=== PATIENT | male | born 1940 | race Caucasian/White ===

== ENCOUNTER → 2018-11-16 | Emergency (ER) | payer MEDICARE, MEDICAID ==
[~2018-11-16] MED LIST: Iopamidol 370 76% 100 ML VIAL ONE; Sodium Chloride 0.9% 1,000 ML IV SCH; Sodium Chloride 0.9% 1,000 ML ONE
--- NOTE | 2018-11-16 22:46 | RAD ---
EXAM: Portable chest PROVIDED CLINICAL HISTORY: Fever COMPARISON: None FINDINGS: Cardiac and mediastinal silhouette is within normal limits. No focal consolidation, pleural fluid or pneumothorax evident. Median sternotomy changes are seen. Vascular calcification is noted. IMPRESSION: No evidence for an acute cardiopulmonary process.
[2018-11-16 22:49] LABS: Band 40 % (5-11); Hemoglobin 15.4 g/dL (14.0-18.0); Lymphocytes 7 % (21-51); MDiff Complete? YES; Mean Corpuscular Hemoglobin 27.9 pg (27.0-31.0); Metamyelocyte 1 % (0-0); Monocytes 4 % (0-10); Neutrophil 48 % (42-75); Platelet Count 190 thou/uL (130-400); Platelet Morphology Comment Appears Adequate; RBC Distribution Width 14.3 % (11.5-14.5); RBC Morphology Normal; Red Blood Cell (RBC) Count 5.53 mill/uL (4.70-6.10); White Blood Cell (WBC) Count 22.7 thou/uL (4.8-10.8)
[2018-11-16 22:55] LABS: ALT (SGPT) 75 U/L (8-55); AST (SGOT) 133 U/L (5-34); Alkaline Phosphatase 65 U/L (40-150); Anion Gap 16 mmol/L (10-20); BUN (Urea Nitrogen) 48 mg/dL (8.4-25.7); Bilirubin, Total 0.7 mg/dL (0.2-1.2); Calc. Creatinine Clearance 0 mL/min (70-130); Carbon Dioxide 22 mmol/L (23-31); Chloride 106 mmol/L (98-107); Estimated GFR-MDRD 54; Globulin 3.6 g/dL (2.4-3.5); Glucose 141 mg/dL (83-110); Potassium 4.7 mmol/L (3.5-5.1); Protein, Total 6.6 g/dL (5.8-8.1); Sodium 139 mmol/L (136-145)
[2018-11-16 23:31] LABS: Bilirubin Small (Negative); Blood, Urine Large (Negative); Clarity Slightly Cloudy (Clear); Glucose, Urine (Dipstick) 100 mg/dL (Negative); Leukocyte Negative (Negative); Nitrite Negative (Negative); Protein, Urine (Dipstick) 30 mg/dL (Neg-Trace)
[2018-11-16 23:38] LABS: Bacteria/HPF 1+ HPF (None Seen); RBC/HPF 0-3 HPF (0-3); Squamous Epithelial 0-3 HPF (0-3); WBC/HPF 0-3 HPF (0-3)
--- NOTE | 2018-11-17 07:36 | CT ---
PRELIMINARY REPORT/[facility]/EMERGENCY AFTER HOURS PROCEDURE: EXAM: CT Abdomen and Pelvis With Contrast EXAM DATE/TIME: 11/17/2018 12:42 AM CLINICAL HISTORY: 78 years old, male; Abnormal findings; Abnormal lab test; Elevated wbc TECHNIQUE: Imaging protocol: Axial computed tomography images of the abdomen and pelvis with intravenous contrast. Coronal and sagittal reformatted images were created and reviewed. Radiation optimization: All CT scans at this facility use at least one of these dose optimization techniques: automated exposure control; mA and/or kV adjustment per patient size (includes targeted exams where dose is matched to clinical indication); or iterative reconstruction. Contrast material: ISOVUE 370; Contrast volume: 70 ml; Contrast route: IV; COMPARISON: No relevant prior studies available. FINDINGS: Lungs: Bilateral dependent atelectasis. Liver: Normal. No mass. Gallbladder and bile ducts: There is thickening of the left superior internus muscle with a welldefin ed 3.6 cm area of hypoattenuation within. There is a similar low attenuation area in the anterolateral aspect of the right gluteus medius muscle. There is incomplete it is less fat stranding adjacent to the visualized portion of the proximal anterior compartment muscles of both thighs. Findings may represent myositis/pyomyositis or rhabdomyolysis. Pancreas: Normal. No ductal dilation. Spleen: Normal. No splenomegaly. Adrenals: Normal. No mass. Kidneys and ureters: Bilateral renal cysts. Stomach and bowel: No bowel wall thickening or intestinal obstruction. Appendix: Normal appendix. Intraperitoneal space: Normal. No free air. No significant fluid collection. Vasculature: Normal. No abdominal aortic aneurysm. Lymph nodes: Normal. No enlarged lymph nodes. Bladder: Unremarkable as visualized. Reproductive: Prostatomegaly. Prostate is heterogeneous. Prostate malignancy not excluded on this study. Bones/joints: No acute fracture. No dislocation. Soft tissues: See Gallbladder And Bile Ducts Finding. IMPRESSION: There is thickening of the left superior internus muscle with a well-defined 3.6 cm area of hypoattenuation within. There is a similar low attenuation area in the anterolateral aspect of the ri ght gluteus medius muscle. There is incomplete it is less fat stranding adjacent to the visualized portio n of the proximal anterior compartment muscles of both thighs. Findings may represent myositis/pyomyositis or rhabdomyolysis. Thank you for allowing us to participate in the care of your patient. Dictated and Authenticated by: Sp Cervantes MD 11/17/2018 2:18 AM Central Time ([place] & [place]) FINAL REPORT CT ABDOMEN AND PELVIS WITH IV CONTRAST PERFORMED ON AN EMERGENCY BASIS: Date: 11/17/18 Time: 0044 hours HISTORY: Abdominal pain. Fever. Leukocytosis. FINDINGS: I agree with the preliminary report by Dr. Cervantes from [facility]. No acute interna l abnormalities are apparent. Mild atelectasis at the lung bases. Irregularity at the posterior aspect of the bladder base favored to be related to the enlarged prostate gland. Ill-defined areas of density alteration of the musculature about the pelvis. Possibly related to myositis. Drainable fluid collection not reliably demonstrated. Code QA. Transcribed Date/Time: 11/17/2018 8:22 AM
== END ==
LOC: NAV ERS 21:57
DX: N39.0 Urinary tract infection, site not specified (principal); G30.1 Alzheimer's disease with late onset; F03.91 Unspecified dementia, unspecified severity, with behavioral disturbance; N40.1 Benign prostatic hyperplasia with lower urinary tract symptoms; E03.9 Hypothyroidism, unspecified; F32.9 Major depressive disorder, single episode, unspecified; Z79.899 Other long term (current) drug therapy
CPT/HCPCS: 36415; 71045; 80053; 81003; 81015; 82550; 83605; 85025; 87040; 87086; 87804; J7050; Q9967

== ENCOUNTER 2018-11-17 03:02 | Inpatient (IN) | payer MEDICARE, MEDICAID ==
[2018-11-17 03:49] VITALS: BMI 25.7
[2018-11-17 05:55] LABS: Anion Gap 17 mmol/L (10-20); BUN (Urea Nitrogen) 42 mg/dL (8.4-25.7); Calc. Creatinine Clearance 61 mL/min (70-130); Calcium 8.7 mg/dL (7.8-10.44); Carbon Dioxide 20 mmol/L (23-31); Chloride 108 mmol/L (98-107); Estimated GFR-MDRD 76; Glucose 110 mg/dL (83-110); Potassium 4.3 mmol/L (3.5-5.1); Sodium 141 mmol/L (136-145)
[2018-11-17] MEDS: Sodium Chloride 0.9% 1,000 ML IV SCH ×2 (06:04→15:55)
[2018-11-17] MEDS: cefTRIAXone\\ROCEPHIN 1 GM in Sodium Chloride 0.9% 100 ML IVPB SCH (06:05)
[2018-11-17] MEDS: Levothyroxine Sodium 75 MCG TAB PO SCH (06:05)
[2018-11-17 06:08] LABS: Vancomycin, Random 12.9 ug/mL (See Comment)
[2018-11-17 06:11] LABS: Band 21 % (5-11); Hemoglobin 15.1 g/dL (14.0-18.0); Lymphocytes 4 % (21-51); MDiff Complete? YES; Mean Corpuscular HGB CONC 30.6 g/dL (32.0-36.0); Mean Corpuscular Hemoglobin 28.3 pg (27.0-31.0); Mean Corpuscular Volume 92.3 fL (78.0-98.0); Mean Platelet Volume 8.4 fL (7.4-10.4); Metamyelocyte 2 % (0-0); Monocytes 6 % (0-10); Neutrophil 67 % (42-75); Platelet Count 164 thou/uL (130-400); Platelet Morphology Comment Appears Adequate; RBC Distribution Width 14.6 % (11.5-14.5); RBC Morphology Normal; Red Blood Cell (RBC) Count 5.34 mill/uL (4.70-6.10); White Blood Cell (WBC) Count 18.9 thou/uL (4.8-10.8)
[2018-11-17] MEDS ORDERED: Vancomycin HCl 1 GM in Sodium Chloride 0.9% 250 ML 250 ML IVPB SCH (09:00)
[2018-11-17] MEDS: Ziprasidone 20 MG CAP PO SCH ×2 (09:03→16:52)
[2018-11-17] MEDS: busPIRone HCl 5 MG TAB PO SCH ×3 (09:04→21:44)
[2018-11-17] MEDS: Tamsulosin HCl 0.4 MG CAP PO SCH (09:04)
[2018-11-17] MEDS: Divalproex Sodium 125 mg Sprinkle Capsule PO SCH ×2 (09:18→21:45)
[2018-11-17] MEDS: Acetaminophen 325 MG TAB PO PRN (16:52)
[2018-11-17] MEDS ORDERED: Prevnar 13-Val Conj/PF 0.5 ML SYRINGE IM ONE (21:00)
[2018-11-17] MEDS: Atorvastatin Calcium 10 MG TAB PO SCH (21:44)
[2018-11-18] MEDS: Acetaminophen 325 MG TAB PO PRN ×2 (01:43→05:28)
[2018-11-18] MEDS: cefTRIAXone\\ROCEPHIN 1 GM in Sodium Chloride 0.9% 100 ML IVPB SCH (05:27)
[2018-11-18] MEDS: Sodium Chloride 0.9% 1,000 ML IV SCH ×2 (05:28→19:54)
[2018-11-18] MEDS: Levothyroxine Sodium 75 MCG TAB PO SCH ×2 (05:28→05:38)
[2018-11-18 06:22] LABS: ALT (SGPT) 55 U/L (8-55); AST (SGOT) 69 U/L (5-34); Albumin 2.4 g/dL (3.4-4.8); Alkaline Phosphatase 50 U/L (40-150); Anion Gap 12 mmol/L (10-20); BUN (Urea Nitrogen) 47 mg/dL (8.4-25.7); Bilirubin, Total 0.5 mg/dL (0.2-1.2); Calc. Creatinine Clearance 71 mL/min (70-130); Calcium 8.3 mg/dL (7.8-10.44); Carbon Dioxide 24 mmol/L (23-31); Chloride 112 mmol/L (98-107); Estimated GFR-MDRD Greater than 90; Globulin 2.9 g/dL (2.4-3.5); Glucose 107 mg/dL (83-110); Potassium 4.1 mmol/L (3.5-5.1); Protein, Total 5.3 g/dL (5.8-8.1); Sodium 144 mmol/L (136-145)
[2018-11-18 06:36] LABS: Hemoglobin 12.6 g/dL (14.0-18.0); Mean Corpuscular HGB CONC 30.9 g/dL (32.0-36.0); Mean Corpuscular Hemoglobin 28.2 pg (27.0-31.0); Mean Corpuscular Volume 91.1 fL (78.0-98.0); Mean Platelet Volume 8.3 fL (7.4-10.4); Platelet Count 142 thou/uL (130-400); RBC Distribution Width 14.6 % (11.5-14.5); Red Blood Cell (RBC) Count 4.48 mill/uL (4.70-6.10); White Blood Cell (WBC) Count 16.3 thou/uL (4.8-10.8)
[2018-11-18 06:37] LABS: Band 13 % (5-11); Lymphocytes 10 % (21-51); MDiff Complete? YES; Metamyelocyte 1 % (0-0); Monocytes 4 % (0-10); Neutrophil 72 % (42-75); Platelet Morphology Comment Appears Adequate
[2018-11-18] MEDS: busPIRone HCl 5 MG TAB PO SCH ×3 (08:38→20:10)
[2018-11-18] MEDS: Tamsulosin HCl 0.4 MG CAP PO SCH (08:38)
[2018-11-18] MEDS: Ziprasidone 20 MG CAP PO SCH ×2 (08:38→17:26)
[2018-11-18] MEDS: Divalproex Sodium 125 mg Sprinkle Capsule PO SCH ×2 (08:39→20:10)
--- NOTE | 2018-11-18 10:06 | HP ---
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 He also has a history of benign prostatic hypertrophy with lower tract symptoms and hypothyroidism. However, he presented to the [facility] Emergency Room with a new onset of fever to 102, decreased activity, but inability to obtain other history. The other history is obtained from the old chart that has been described above. ALLERGIES: HE HAS NO KNOWN ALLERGIES. MEDICATIONS: Included, 1. Levothyroxine 75 mcg daily. 2. BuSpar 5 mg three times daily. 3. Simvastatin 20 daily. 4. Depakote Sprinkles 375 mg twice daily. 5. Namenda 10 twice daily. 6. Ziprasidone 20 mg twice daily. 7. He also is on tamsulosin 0.4 mg nightly. REVIEW OF SYSTEMS: Unobtainable. He was seen in the emergency room and he was found to have significant leukocytosis. Temperature 102, O2 sats 95% on room air. LABORATORY DATA: Showed a white count of 22,700, hemoglobin of 15.4, hematocrit of 49.8, 21% bands, and 20% lymphs. Sodium was 139, potassium 4.7, chloride 106, bicarb 22, BUN 48, and creatinine 1.29. Lactic acid 1.9. AST 133, ALT 75, CK 7851. BNP 132. Urinalysis revealing positive dipstick for blood with only 0 to 3 red cells on microscopic consistent with myoglobinuria. DIAGNOSTIC STUDIES: Chest x-ray showed no acute infiltrates. CT scan of the abdomen and pelvis however reveals thickening of the left superior internus muscle with 3.6 cm area hypodensity, similar low attenuation area in the right gluteus medius muscle consistent with myositis, pyomyositis, or rhabdomyolysis. ASSESSMENT: with subsequent altered mental status consistent with rhabdomyolysis PLAN: 1. IV normal saline Rocephin 1 gm IV daily. 2. Base met profile. CBC in the a.m. 3. The patient is not to be resuscitated. 4. Continue Curtis Johansen . Job ID: [id number]
[2018-11-18] MEDS: Atorvastatin Calcium 10 MG TAB PO SCH (20:10)
[2018-11-19 05:41] LABS: #Basophils 0.1 thou/uL (0.0-0.2); #Eosinphils 0.3 thou/uL (0.0-0.7); #Lymphocytes 1.5 thou/uL (1.20-3.40); #Monocytes 0.8 thou/uL (0.11-0.59); #Neutrophils 9.2 thou/uL (1.40-6.50); %Basophils 1.2 % (0.0-1.0); %Eosinophils 2.3 % (0.0-10.0); %Lymphocytes 12.4 % (21.0-51.0); %Monocytes 6.9 % (0.0-10.0); %Neutrophils 77.2 % (42.0-75.0); Hemoglobin 11.2 g/dL (14.0-18.0); Mean Corpuscular HGB CONC 31.1 g/dL (32.0-36.0); Mean Corpuscular Hemoglobin 28.4 pg (27.0-31.0); Mean Corpuscular Volume 91.1 fL (78.0-98.0); Mean Platelet Volume 7.4 fL (7.4-10.4); Platelet Count 133 thou/uL (130-400); RBC Distribution Width 14.4 % (11.5-14.5); Red Blood Cell (RBC) Count 3.96 mill/uL (4.70-6.10); White Blood Cell (WBC) Count 11.9 thou/uL (4.8-10.8)
[2018-11-19] MEDS: Levothyroxine Sodium 75 MCG TAB PO SCH (05:45)
[2018-11-19] MEDS: cefTRIAXone\\ROCEPHIN 1 GM in Sodium Chloride 0.9% 100 ML IVPB SCH (05:45)
[2018-11-19 05:52] LABS: Anion Gap 12 mmol/L (10-20); BUN (Urea Nitrogen) 44 mg/dL (8.4-25.7); Calc. Creatinine Clearance 80 mL/min (70-130); Calcium 7.9 mg/dL (7.8-10.44); Carbon Dioxide 23 mmol/L (23-31); Chloride 113 mmol/L (98-107); Estimated GFR-MDRD Greater than 90; Glucose 105 mg/dL (83-110); Potassium 3.8 mmol/L (3.5-5.1); Sodium 144 mmol/L (136-145)
[2018-11-19] MEDS: Divalproex Sodium 125 mg Sprinkle Capsule PO SCH ×2 (08:33→21:02)
[2018-11-19] MEDS: Tamsulosin HCl 0.4 MG CAP PO SCH (08:33)
[2018-11-19] MEDS: Ziprasidone 20 MG CAP PO SCH ×2 (08:33→17:59)
[2018-11-19] MEDS: busPIRone HCl 5 MG TAB PO SCH ×3 (08:33→21:01)
[2018-11-19] MEDS: Sodium Chloride 0.9% 1,000 ML IV SCH ×2 (10:20→23:16)
--- NOTE | 2018-11-19 18:16 | PRG ---
DATE OF SERVICE: 11/19/2018 SUBJECTIVE: The patient is more awake, alert and responsive today and appears to be close to his baseline mental status. Denying any complaints. The patient is eating 50% to 75% of meals at this time. OBJECTIVE: LUNGS: Clear. CARDIAC: Regular rhythm. ABDOMEN: Soft and nontender. LABORATORY DATA: Shows sodium 144, potassium 4.1, chloride 112, bicarb 24, BUN 47, creatinine 0.81, albumin 2.4. [place] 132[place] [address], hematocrit 40, hemoglobin 12. ASSESSMENT: Resolving pyomyositis with decreasing pain and fever, and improving leukocytosis, and return to baseline mental status and dietary status as the patient is eating well. PLAN: 1. . His urine culture and blood culture are negative at 48 hours. 2. Continue IV fluids of normal saline at 75 mL an hour. change antibiotics to Rocephin 1 g q.24. Plan, repeat lab tomorrow as well as CRP, BMP. Continue IV fluids one more day and repeat CPK and possibly obtain PICC line as the patient may need at least two weeks of IV antibiotics. Job ID: [id number]
[2018-11-19] MEDS: Atorvastatin Calcium 10 MG TAB PO SCH (21:03)
[2018-11-20] MEDS: cefTRIAXone\\ROCEPHIN 1 GM in Sodium Chloride 0.9% 100 ML IVPB SCH (05:40)
[2018-11-20] MEDS: Levothyroxine Sodium 75 MCG TAB PO SCH (05:41)
[2018-11-20 06:42] VITALS: BP 119/58; TEMP 98.4
--- NOTE | 2018-11-20 07:30 | PRG ---
DATE OF SERVICE: 11/19/2018 SUBJECTIVE: The patient is awake and alert, at baseline mental status, which is minimally verbally responsive, but in no distress and eating well. OBJECTIVE: Shows CRP is 14.44. Sodium is 144, potassium 3.8, chloride 113, bicarb 23, BUN is 44, creatinine 0.72. White count is down to 11,900, hematocrit 36, hemoglobin 11. Blood pressure is 134/76, temperature is 99.1, pulse 84, respirations 18, O2 sats 94% on room air. Urine culture at 48 hours reported out as no growth. Blood culture preliminary report at 48 hours is no growth. Lungs are clear. Cardiac examination showed regular rhythm. Abdomen is soft and nontender as his back and truncal areas. ASSESSMENT: 1. Resolving sepsis with normalized leukocytosis. No fever; tachycardia, stable blood pressure, and return to stable mental status, on IV Rocephin. 2. Underlying diagnosis of probable pyomyositis seen on CT scan of the abdomen and pelvis, most likely the cause of the sepsis syndrome. We will consult with infectious diseases of further evaluation required. 3. Rhabdomyolysis secondary to above mentioned pyomyositis, improving with decrease in CK and normal renal function. 4. Stable underlying altered mental status and dementia, back to baseline. 5. Hypothyroidism, stable. 6. Seizure disorder, controlled on prehospitalization meds. 7. Behavioral disturbances secondary to above-mentioned dementia, stable on medications. PLAN: 1. Continue IV Rocephin. 2. Discussed with Infectious Diseases further evaluation and also length of therapy required. 3. Continue IV fluids until tomorrow and then discontinue heparin lock. 4. Continue pre-hospital seizure medications and dementia medications. Job ID: [id number]
--- NOTE | 2018-11-20 07:42 | DIS ---
DATE OF ADMISSION: 11/17/2018 DATE OF DISCHARGE: 11/20/2018 FINAL DIAGNOSES: 1. Sepsis syndrome secondary to pyomyositis of the abdominal wall, improving on IV antibiotics. 2. Dementia, stable on prehospitalization medications with controlled behavioral disturbances. 3. Seizure disorder, controlled on prehospitalization meds. 4. Benign prostatic hypertrophy, lower tract obstructive symptoms stable. 5. Hypothyroidism, stable. HOSPITAL COURSE: The patient is a 78-year-old white male with dementia and seizure disorder, living at long term, who presented with acute onset of fever and a decrease in his mental status to unresponsiveness. He was found in the emergency room to have a white count of 22,700, BUN of 48, a creatinine of 1.29, a lactic acid of 1.9. Urinalysis was positive for blood, but there was no microscopic pyuria or hematuria. CK was found to be elevated at 7851. Chest x-ray was clear, but CT of the abdomen showed areas of thickening and gas pockets in the right gluteus medius muscle consistent with pyomyositis or rhabdomyolysis. Because of the sepsis syndrome, it was felt this was infectious. He was started on IV fluids and broad-spectrum IV antibiotic. Blood and urine cultures were done. They both returned negative but the patient initially was unresponsive, remained that way for 24 to 36 hours, but then began to return to baseline mental status, which was awake and alert, minimally responsive verbally but eating. His vital signs improved with no further fever. Blood pressure remained stable to 136/62, pulse 85, respirations 18, O2 sats 94% on room air. His laboratories improved greatly with his white count decreasing to 18,000 and 16,000 and 11,000 over the acute care admission. His CK decreased from 7800 on admission to 6700 the next day to 569 on transfer to the skilled unit. However, his C-reactive protein was still significantly elevated at 14.44 on transfer to the skilled unit. It was felt he had persistent inflammation of the gluteus medius muscle with myositis. He was therefore elected to continue on IV Rocephin for least 10 to 14 days and we will consult with Infectious Disease on the length of therapy and followup. He will be transferred to the [facility], will be continued on IV Rocephin and on his prehospitalization medications of Depakote 375 mg twice daily, levothyroxine 75 mcg daily, memantine 10 mg twice daily, tamsulosin 0.4 mg daily, ziprasidone 20 mg twice daily. His prognosis is improving, still guarded. He is not to be resuscitated. Job ID: [id number]
== END 2018-11-20 07:04 | disposition swing bed (61) | DRG 872 ==
LOC: NAV ACUTE 03:02
PROVIDERS: ADMIT Internal Medicine; ATTEND Internal Medicine
DX: A41.9 Sepsis, unspecified organism (principal); F03.91 Unspecified dementia, unspecified severity, with behavioral disturbance; R44.3 Hallucinations, unspecified; M62.82 Rhabdomyolysis; M60.08 Infective myositis, other site; G40.909 Epilepsy, unspecified, not intractable, without status epilepticus; N40.1 Benign prostatic hyperplasia with lower urinary tract symptoms; E03.9 Hypothyroidism, unspecified; Z79.899 Other long term (current) drug therapy
CPT/HCPCS: 36415; 51701; 71045; 74177; 80048; 80053; 80202; 81003; 81015; 82550; 83605; 83880; 85025; 86140; 87040; 87086; 87804; 96361; 96365; 96367; J0696; J3490; J7050; Q9967

== ENCOUNTER 2018-11-20 07:08 | Inpatient (IN) | payer MEDICARE, MEDICAID ==
[2018-11-20] MEDS ORDERED: Ondansetron PF 4 MG/2 ML Vial IVP PRN (07:18)
[2018-11-20] MEDS ORDERED: Loperamide HCl 2 MG CAP PO PRN (07:18)
[2018-11-20] MEDS: Ziprasidone 20 MG CAP PO SCH ×2 (08:40→17:31)
[2018-11-20] MEDS: Divalproex Sodium 125 mg Sprinkle Capsule PO SCH ×2 (08:41→21:05)
[2018-11-20] MEDS: Tamsulosin HCl 0.4 MG CAP PO SCH (08:41)
[2018-11-20] MEDS: busPIRone HCl 5 MG TAB PO SCH ×3 (08:42→21:02)
[2018-11-20] MEDS: Famotidine 20 MG TAB PO SCH ×2 (08:42→21:02)
[2018-11-20] MEDS ORDERED: LEVOTHYROXINE SODIUM 75 MCG PO SCH (09:00)
[2018-11-20 10:45] VITALS: BMI 25.7
[2018-11-20] MEDS ORDERED: Atorvastatin Calcium 10 MG TAB PO SCH (21:00)
[2018-11-20] MEDS ORDERED: SIMVASTATIN 20 MG PO SCH (21:00)
[2018-11-21] MEDS: Sodium Chloride 0.9% 1,000 ML IV SCH ×2 (02:58→16:09)
[2018-11-21] MEDS: Levothyroxine Sodium 75 MCG TAB PO SCH (05:20)
[2018-11-21 05:45] LABS: Band 8 % (5-11); Eosinophils 2 % (0-10); Hemoglobin 11.2 g/dL (14.0-18.0); Lymphocytes 14 % (21-51); MDiff Complete? YES; Mean Corpuscular Hemoglobin 28.2 pg (27.0-31.0); Mean Platelet Volume 7.8 fL (7.4-10.4); Monocytes 6 % (0-10); Neutrophil 70 % (42-75); Platelet Count 164 thou/uL (130-400); Platelet Morphology Comment Appears Adequate; RBC Distribution Width 14.3 % (11.5-14.5); RBC Morphology Normal; Red Blood Cell (RBC) Count 3.97 mill/uL (4.70-6.10); White Blood Cell (WBC) Count 11.9 thou/uL (4.8-10.8)
[2018-11-21 05:51] LABS: ALT (SGPT) 49 U/L (8-55); AST (SGOT) 43 U/L (5-34); Albumin 2.3 g/dL (3.4-4.8); Alkaline Phosphatase 82 U/L (40-150); Anion Gap 11 mmol/L (10-20); BUN (Urea Nitrogen) 29 mg/dL (8.4-25.7); Bilirubin, Total 0.5 mg/dL (0.2-1.2); Calc. Creatinine Clearance 85 mL/min (70-130); Calcium 8.2 mg/dL (7.8-10.44); Carbon Dioxide 26 mmol/L (23-31); Chloride 113 mmol/L (98-107); Estimated GFR-MDRD Greater than 90; Glucose 116 mg/dL (83-110); Potassium 3.4 mmol/L (3.5-5.1); Protein, Total 5.3 g/dL (5.8-8.1); Sodium 147 mmol/L (136-145)
[2018-11-21] MEDS: Ziprasidone 20 MG CAP PO SCH ×2 (08:37→16:10)
[2018-11-21] MEDS: Famotidine 20 MG TAB PO SCH ×2 (08:38→21:04)
[2018-11-21] MEDS: busPIRone HCl 5 MG TAB PO SCH ×3 (08:38→21:04)
[2018-11-21] MEDS: Divalproex Sodium 125 mg Sprinkle Capsule PO SCH ×2 (08:38→21:03)
[2018-11-21] MEDS: Tamsulosin HCl 0.4 MG CAP PO SCH (08:38)
[2018-11-21] MEDS ORDERED: Prevnar 13-Val Conj/PF 0.5 ML SYRINGE IM ONE (09:00)
[2018-11-22] MEDS: Levothyroxine Sodium 75 MCG TAB PO SCH (05:22)
[2018-11-22 05:31] LABS: Eosinophils 2 % (0-10); Lymphocytes 15 % (21-51); MDiff Complete? YES; Mean Corpuscular HGB CONC 32.4 g/dL (32.0-36.0); Mean Corpuscular Hemoglobin 29.2 pg (27.0-31.0); Mean Corpuscular Volume 90.1 fL (78.0-98.0); Mean Platelet Volume 7.1 fL (7.4-10.4); Monocytes 7 % (0-10); Neutrophil 76 % (42-75); Platelet Count 171 thou/uL (130-400); Platelet Morphology Comment Appears Adequate; RBC Distribution Width 14.5 % (11.5-14.5); RBC Morphology Normal; Red Blood Cell (RBC) Count 3.76 mill/uL (4.70-6.10); White Blood Cell (WBC) Count 11.4 thou/uL (4.8-10.8)
[2018-11-22 05:46] LABS: Anion Gap 11 mmol/L (10-20); BUN (Urea Nitrogen) 27 mg/dL (8.4-25.7); CK (CPK) 234 U/L (30-200); Calc. Creatinine Clearance 85 mL/min (70-130); Calcium 7.9 mg/dL (7.8-10.44); Carbon Dioxide 25 mmol/L (23-31); Chloride 114 mmol/L (98-107); Estimated GFR-MDRD Greater than 90; Glucose 107 mg/dL (83-110); Potassium 3.2 mmol/L (3.5-5.1); Sodium 147 mmol/L (136-145)
[2018-11-22] MEDS: Sodium Chloride 0.9% 1,000 ML IV SCH (06:27)
[2018-11-22] MEDS: Divalproex Sodium 125 mg Sprinkle Capsule PO SCH ×2 (08:16→21:30)
[2018-11-22] MEDS: busPIRone HCl 5 MG TAB PO SCH ×3 (08:16→21:30)
[2018-11-22] MEDS: Tamsulosin HCl 0.4 MG CAP PO SCH (08:16)
[2018-11-22] MEDS: Famotidine 20 MG TAB PO SCH ×2 (08:16→21:29)
[2018-11-22] MEDS: Ziprasidone 20 MG CAP PO SCH ×2 (08:17→15:53)
[2018-11-22] MEDS: Acetaminophen 325 MG TAB PO PRN (18:17)
[2018-11-22 18:51] LABS: Lactic Acid 1.7 mmol/L (0.5-2.2)
[2018-11-22 18:57] LABS: ALT (SGPT) 60 U/L (8-55); AST (SGOT) 68 U/L (5-34); Albumin 2.3 g/dL (3.4-4.8); Alkaline Phosphatase 99 U/L (40-150); Anion Gap 13 mmol/L (10-20); BUN (Urea Nitrogen) 26 mg/dL (8.4-25.7); Bilirubin, Total 0.4 mg/dL (0.2-1.2); Calc. Creatinine Clearance 80 mL/min (70-130); Carbon Dioxide 24 mmol/L (23-31); Chloride 113 mmol/L (98-107); Estimated GFR-MDRD Greater than 90; Globulin 3.1 g/dL (2.4-3.5); Glucose 154 mg/dL (83-110); Potassium 3.6 mmol/L (3.5-5.1); Protein, Total 5.4 g/dL (5.8-8.1); Sodium 146 mmol/L (136-145)
[2018-11-22 19:13] LABS: Red Blood Cell (RBC) Count 4.28 mill/uL (4.70-6.10)
[2018-11-22 19:15] LABS: #Basophils 0.2 thou/uL (0.0-0.2); #Eosinphils 0.2 thou/uL (0.0-0.7); #Lymphocytes 1.5 thou/uL (1.20-3.40); #Monocytes 0.9 thou/uL (0.11-0.59); #Neutrophils 10.1 thou/uL (1.40-6.50); %Basophils 1.3 % (0.0-1.0); %Eosinophils 1.4 % (0.0-10.0); %Lymphocytes 11.6 % (21.0-51.0); %Neutrophils 78.7 % (42.0-75.0); Differential Comment SCANNED; Hemoglobin 12.1 g/dL (14.0-18.0); Mean Corpuscular HGB CONC 31.2 g/dL (32.0-36.0); Mean Corpuscular Hemoglobin 28.3 pg (27.0-31.0); Mean Corpuscular Volume 90.8 fL (78.0-98.0); Mean Platelet Volume 6.6 fL (7.4-10.4); Platelet Count 215 thou/uL (130-400); RBC Distribution Width 14.3 % (11.5-14.5); White Blood Cell (WBC) Count 12.8 thou/uL (4.8-10.8)
[2018-11-22] MEDS ORDERED: Sodium Chloride 0.9% 1,000 ML IV SCH (21:15)
[2018-11-22] MEDS: cefTRIAXone\\ROCEPHIN 1 GM in Sodium Chloride 0.9% 100 ML IVPB SCH (21:27)
[2018-11-22] MEDS: Dextrose 5 %-0.45 % NaCl 1,000 ML IV SCH (21:36)
--- NOTE | 2018-11-22 21:41 | PRG ---
DATE OF SERVICE: 11/22/2018 SUBJECTIVE: The patient is less responsive today, did eat, but not as much. OBJECTIVE: VITAL SIGNS: Show temperature increased to 100.4, pulse 107, respirations 18, O2 saturations 93% on room air, blood pressure 118/58. LUNGS: Clear. CARDIAC: Showed regular rhythm. ABDOMEN: Soft, nontender. ASSESSMENT: 1. Possible recurrent sepsis from pyomyositis or another source. 2. Stable dementia with worsening status. 3. Stable seizure disorder. PLAN: Restart IV fluids. Obtain blood cultures. Restart Rocephin. Obtain CBC, comp met, CRP. Job ID: [id number]
[2018-11-23 01:21] LABS: Bilirubin Negative (Negative); Blood, Urine Negative (Negative); Clarity Clear (Clear); Glucose, Urine (Dipstick) Negative (Negative); Leukocyte Negative (Negative); Nitrite Negative (Negative); Protein, Urine (Dipstick) 30 mg/dL (Neg-Trace)
[2018-11-23 01:25] LABS: Bacteria/HPF None Seen HPF (None Seen); RBC/HPF None Seen HPF (0-3); Squamous Epithelial 0-3 HPF (0-3); WBC/HPF None Seen HPF (0-3)
[2018-11-23] MEDS: Levothyroxine Sodium 75 MCG TAB PO SCH (05:27)
[2018-11-23] MEDS: Tamsulosin HCl 0.4 MG CAP PO SCH (08:19)
[2018-11-23] MEDS: Divalproex Sodium 125 mg Sprinkle Capsule PO SCH ×2 (08:19→20:32)
[2018-11-23] MEDS: Ziprasidone 20 MG CAP PO SCH ×2 (08:19→17:55)
[2018-11-23] MEDS: Famotidine 20 MG TAB PO SCH ×2 (08:20→20:32)
[2018-11-23] MEDS: busPIRone HCl 5 MG TAB PO SCH ×3 (08:20→20:32)
--- NOTE | 2018-11-23 08:39 | HP ---
HISTORY OF PRESENT ILLNESS: The patient is a 78-year-old white male, [facility] with dementia and seizure disorder, who was found to be unresponsive and sent to the emergency room and found to have a white count of 22,000, BUN of 48, creatinine 1.29, lactic acid 1.9. He has no history of trauma, but was found to have a CK of 7851. Chest x-ray was negative, but abdomen CT showed areas of thickening and gas pockets in the right gluteus medius muscle. He was started with IV fluids, broad-spectrum antibiotics to cover sepsis. Blood and urine cultures done, returned negative, but the patient became more and more responsive, returned to his baseline, alert, but confused. Mental status, he is able to eat. His blood pressure remained stable 136/62. White count decreased to 11,000. CK decreased from 7800 to 569, however, C-reactive protein is still elevated at 14,400. Informal consult was obtained with Infectious Disease, who felt this was possibly just rhabdomyolysis related to his statin and suggest to continue IV, but discontinue the Rocephin. He was transferred to the skilled unit where he will be continued on IV fluids and monitor closely. May need to be restarted back on Rocephin if recurrent fever. He will be continued on his prehospitalization medications of Depakote 375 twice daily, levothyroxine 75 daily, tamsulosin ziprasidone 20 twice daily, memantine 10 twice daily. PHYSICAL EXAMINATION: VITAL SIGNS: On admission, his vital signs showed him to have temperature 98.3, pulse 93, respirations 23, O2 sats 93% on room air, and blood pressure 123/60. HEENT: Pupils are equal, round, and reactive to light and accommodation. Sclerae anicteric. Conjunctivae pale. Oral mucous membranes well hydrated. NECK: Supple. There are no nodes or masses. JVP is not elevated. There was no tenderness to palpation of the abdomen or back. NEUROLOGIC: The patient moves all extremities to pain and occasionally to purposeful movement. He did eat well. LABORATORY DATA: Showed a white count 11,900, hematocrit 36, hemoglobin 11. Sodium 147, potassium 3.4, chloride 113, BUN 29, creatinine 0.68, albumin 2.3. CK 313. ASSESSMENT: 1. Resolving rhabdomyolysis. No evidence of renal failure. 2. Stable dementia. 3. Stable seizure disorder. PLAN: Continue IV fluids. Discontinue Rocephin. Monitor laboratories. Discontinue atorvastatin. Job ID: [id number]
[2018-11-23] MEDS: Dextrose 5 %-0.45 % NaCl 1,000 ML IV SCH ×2 (11:23→23:30)
[2018-11-23] MEDS: cefTRIAXone\\ROCEPHIN 1 GM in Sodium Chloride 0.9% 100 ML IVPB SCH (20:32)
[2018-11-24] MEDS: Levothyroxine Sodium 75 MCG TAB PO SCH (05:55)
[2018-11-24 06:15] LABS: Band 10 % (5-11); Eosinophils 2 % (0-10); Hemoglobin 10.7 g/dL (14.0-18.0); Lymphocytes 10 % (21-51); MDiff Complete? YES; Mean Corpuscular Hemoglobin 28.5 pg (27.0-31.0); Mean Platelet Volume 6.4 fL (7.4-10.4); Monocytes 10 % (0-10); Neutrophil 68 % (42-75); Platelet Count 208 thou/uL (130-400); Platelet Morphology Comment Appears Adequate; RBC Distribution Width 14.6 % (11.5-14.5); RBC Morphology Normal; Red Blood Cell (RBC) Count 3.77 mill/uL (4.70-6.10); White Blood Cell (WBC) Count 13.7 thou/uL (4.8-10.8)
[2018-11-24 06:26] LABS: ALT (SGPT) 60 U/L (8-55); AST (SGOT) 58 U/L (5-34); Albumin 1.9 g/dL (3.4-4.8); Alkaline Phosphatase 91 U/L (40-150); Anion Gap 11 mmol/L (10-20); BUN (Urea Nitrogen) 26 mg/dL (8.4-25.7); Bilirubin, Total 0.4 mg/dL (0.2-1.2); Calc. Creatinine Clearance 79 mL/min (70-130); Calcium 7.7 mg/dL (7.8-10.44); Carbon Dioxide 27 mmol/L (23-31); Chloride 110 mmol/L (98-107); Estimated GFR-MDRD Greater than 90; Globulin 2.7 g/dL (2.4-3.5); Glucose 130 mg/dL (83-110); Potassium 3.7 mmol/L (3.5-5.1); Protein, Total 4.6 g/dL (5.8-8.1); Sodium 144 mmol/L (136-145)
--- NOTE | 2018-11-24 06:50 | PRG ---
DATE OF SERVICE: 11/23/2018 SUBJECTIVE: The patient appears more responsive today, eating better. He is having no cough, shortness of breath, nausea, vomiting, or signs of pain. OBJECTIVE: VITAL SIGNS: Show temperature down to 99.3 from peak of 100.4 yesterday, pulse is 88, respirations 22, O2 sat is 90% on room air, and blood pressure is 121/58. LUNGS: Clear. ABDOMEN: Soft and nontender. CARDIAC: Showed regular rhythm. SKIN/EXTREMITIES: Show no tenderness to palpation to back and legs. LABORATORY DATA: Shows sodium 146, potassium 3.6, chloride 113, bicarb 24, BUN 26, creatinine 0.72, lactate 1.7, glucose 154, AST 68, and ALT 60. White count 12,800 with 78% segs, hematocrit 38, and hemoglobin 12. ASSESSMENT: Recurrent fever in a patient with elevated enzymes, leukocytosis, and a CT consistent with possible pyomyositis, felt possibly have been due to drug reaction, and antibiotics and fluids were discontinued, but now is having recurrent fever and has been started back on IV fluids and IV Rocephin with repeat blood and urine cultures done. The patient appears to be improving with increased alertness and we will continue to follow on IV Rocephin and fluids. We will repeat chest x-ray. Await results of urine and blood cultures and we will also repeat chemistry to see if muscle enzymes continue to improve and renal function remains stable. Job ID: [id number]
[2018-11-24] MEDS: Famotidine 20 MG TAB PO SCH ×2 (08:48→21:02)
[2018-11-24] MEDS: Divalproex Sodium 125 mg Sprinkle Capsule PO SCH ×2 (08:48→21:02)
[2018-11-24] MEDS: Tamsulosin HCl 0.4 MG CAP PO SCH (08:48)
[2018-11-24] MEDS: busPIRone HCl 5 MG TAB PO SCH ×3 (08:48→21:02)
[2018-11-24] MEDS: Ziprasidone 20 MG CAP PO SCH ×2 (08:48→17:33)
--- NOTE | 2018-11-24 08:56 | RAD ---
PORTABLE CHEST 1 VIEW: Date: 11/24/18 Time: 0828 hours HISTORY: Fever. FINDINGS: Comparison made with exam of 11/16/18. The changes of median sternotomy are again seen. The heart size is normal. No focal areas of consolid ation, pneumothoraces, ruperto pulmonary edema, or pleural effusions are seen. IMPRESSION: No acute process. POS: TPC
[2018-11-24] MEDS: Dextrose 5 %-0.45 % NaCl 1,000 ML IV SCH (15:32)
[2018-11-24] MEDS: cefTRIAXone\\ROCEPHIN 1 GM in Sodium Chloride 0.9% 100 ML IVPB SCH (20:12)
--- NOTE | 2018-11-24 21:08 | PRG ---
DATE OF SERVICE: 11/24/2018 SUBJECTIVE: The patient is awake, alert, at baseline mental status, in no distress. Eating well, but not answering questions coherently. OBJECTIVE: LUNGS: Clear. CARDIAC: Showed regular rhythm. ABDOMEN: Soft and nontender. SKIN/EXTREMITIES: Displayed no edema, clubbing, cyanosis. NEUROLOGICAL: Intact. No focal finding. ABDOMEN: Soft and nontender as is back. VITAL SIGNS: 99.2, pulse 91, respirations 22, O2 sats 93% on room air, blood pressure 120/60. LABORATORY DATA: White count 19784, slowly increasing, hematocrit is 34, hemoglobin is 10. Sodium is 144, potassium 3.7, chloride 110, bicarb 27, BUN 26, creatinine 0.73, glucose 130, calcium 7.7, AST 58, ALT 68. ASSESSMENT: Fever and recurrent leukocytosis in a patient with pyomyositis, which apparently is infectious, has worsened when off antibiotics. PLAN: 1. Obtain CT of the abdomen and pelvis again tomorrow to determine any change in abnormality. 2. Continue IV Rocephin. 3. Await results of blood cultures. 4. Continue nutritional support. Job ID: [id number]
[2018-11-25] MEDS: Dextrose 5 %-0.45 % NaCl 1,000 ML IV SCH ×2 (04:17→17:55)
[2018-11-25 05:14] LABS: Hemoglobin 11.1 g/dL (14.0-18.0); Mean Corpuscular HGB CONC 32.1 g/dL (32.0-36.0); Mean Corpuscular Hemoglobin 29.2 pg (27.0-31.0); Mean Corpuscular Volume 91.1 fL (78.0-98.0); Mean Platelet Volume 6.6 fL (7.4-10.4); Platelet Count 214 thou/uL (130-400); RBC Distribution Width 14.6 % (11.5-14.5); Red Blood Cell (RBC) Count 3.79 mill/uL (4.70-6.10); White Blood Cell (WBC) Count 15.8 thou/uL (4.8-10.8)
[2018-11-25 05:15] LABS: Lymphocytes 13 % (21-51); MDiff Complete? YES; Monocytes 5 % (0-10); Neutrophil 78 % (42-75); Platelet Morphology Comment Appears Adequate; RBC Morphology Normal
[2018-11-25] MEDS: Levothyroxine Sodium 75 MCG TAB PO SCH (05:21)
[2018-11-25] MEDS: Divalproex Sodium 125 mg Sprinkle Capsule PO SCH ×2 (08:03→20:23)
[2018-11-25] MEDS: Acetaminophen 325 MG TAB PO PRN (08:03)
[2018-11-25] MEDS: busPIRone HCl 5 MG TAB PO SCH ×3 (08:03→20:24)
[2018-11-25] MEDS: Ziprasidone 20 MG CAP PO SCH ×2 (08:03→17:45)
[2018-11-25] MEDS: Tamsulosin HCl 0.4 MG CAP PO SCH (08:03)
[2018-11-25] MEDS: Famotidine 20 MG TAB PO SCH ×2 (08:03→20:24)
[2018-11-25] MEDS ORDERED: Iopamidol 370 76% 100 ML VIAL ONE ×2 (09:00)
[2018-11-25] MEDS ORDERED: Sodium Chloride 0.9% 10 ML ONE (15:37)
--- NOTE | 2018-11-25 15:48 | CT ---
CT ABDOMEN AND PELVIS WITH IV CONTRAST: 11/25/18 HISTORY: Increasing white blood cell count. Patient is on antibiotics. Pyomyositis. COMPARISON: 11/17/18. FINDINGS: There has been interval development of a small right pleural effusion. There is bibasilar atelectasis again present. There is questionable filling defect within the distal right main pulmonary artery (i mages 101 and 102 of series 2). A hiatal hernia is noted. The patient's arms are down by the side limiting evaluation as there is str eak artifact through the upper abdominal parenchymal organs. However, the liver, spleen, pancreas, an d bilateral adrenal glands demonstrate a normal CT appearance. A few subcentimeter too small to leia cterize hypodense lesions are seen in the left kidney with lobulated contour of the left kidney which may be related to mild lobulation and/or scarring. Low density region in the mid portion media l aspect right kidney is again seen. Also seen on the prior study, likely related to small cysts. Urinary bladder is incompletely distended but otherwise grossly normal in appearance. Prostate gland remains heterogeneous in appearance and is mildly enlarged measuring 5.2 cm in transverse dimensions. Loops of small bowel are normal in caliber. Vascular calcifications are seen in the abdominal aorta involving the iliac arteries. There is a tiny amount of presacral fluid and inflammatory changes noted which is stable from prior e xam. The previously described low density area within the right gluteus medius muscle as well as obturator internus muscle have decreased in size and are much less apparent on today's examination. There is suggestion of a small left hydrocele. There is mild subcutaneous edema seen diffusely suggesting a degree of anasarca. IMPRESSION: 1. Questionable pulmonary embolus involving the right main pulmonary artery. CT angiogram thorax is recommended for further evaluation depending on patient's renal function. 2. Interval development of small bilateral pleural effusions with associated passive atelectasis . 3. Improvement in the thickening and low density areas within the left obturator internus muscle as well as involving the right gluteus medius muscle. 4. The mild stranding adjacent to the musculature in the anterior proximal left thigh and hip flores s also improved. There is generalized subcutaneous edema likely related to anasarca. 5. Enlarged heterogeneous appearance of the prostate gland. Neoplastic process involving the pro state gland cannot be excluded based on CT evaluation. 6. No fluid collection seen to suggest an abscess. 7. Small hiatal hernia. 8. Above findings discussed with Dr. Aron Maldonado on 11/25/18 at 1509 hours.
[2018-11-25] MEDS ORDERED: D5 1/2 NS 500 ML IV SCH (18:45)
[2018-11-25 20:13] LABS: #Basophils 0.1 thou/uL (0.0-0.2); #Eosinphils 0.2 thou/uL (0.0-0.7); #Lymphocytes 1.4 thou/uL (1.20-3.40); #Monocytes 0.7 thou/uL (0.11-0.59); #Neutrophils 11.9 thou/uL (1.40-6.50); %Basophils 0.8 % (0.0-1.0); %Eosinophils 1.2 % (0.0-10.0); %Lymphocytes 9.5 % (21.0-51.0); %Monocytes 4.6 % (0.0-10.0); Hemoglobin 10.5 g/dL (14.0-18.0); Mean Corpuscular HGB CONC 31.2 g/dL (32.0-36.0); Mean Corpuscular Hemoglobin 28.6 pg (27.0-31.0); Mean Corpuscular Volume 91.8 fL (78.0-98.0); Mean Platelet Volume 7.1 fL (7.4-10.4); Platelet Count 231 thou/uL (130-400); RBC Distribution Width 14.5 % (11.5-14.5); Red Blood Cell (RBC) Count 3.66 mill/uL (4.70-6.10); White Blood Cell (WBC) Count 14.2 thou/uL (4.8-10.8)
[2018-11-25] MEDS: Vancomycin HCl 1 GM in Sodium Chloride 0.9% 250 ML 250 ML IVPB SCH (20:19)
[2018-11-25 20:25] LABS: Anion Gap 12 mmol/L (10-20); BUN (Urea Nitrogen) 28 mg/dL (8.4-25.7); Calc. Creatinine Clearance 84 mL/min (70-130); Calcium 7.6 mg/dL (7.8-10.44); Carbon Dioxide 22 mmol/L (23-31); Chloride 107 mmol/L (98-107); Estimated GFR-MDRD Greater than 90; Glucose 170 mg/dL (83-110); Sodium 137 mmol/L (136-145)
--- NOTE | 2018-11-25 22:03 | CT ---
CTA CHEST: 11/25/18 Axial tomograms obtained following pulmonary angio protocol with multiplanar reconstructions and 3D p ostprocessing. INDICATIONS: Pulmonary embolus. Evidence of pulmonary embolus seen on recent CT abdomen and pelvis. FINDINGS: There are bilateral pulmonary emboli. Saddle type emboli are seen in both main pulmonary arteries wit h emboli extending into all lung segments bilaterally. The lung hernandez show chronic parenchymal change with hyperexpansion and interstitial thickening. Smal l bilateral effusions and mild bibasilar atelectasis. Fixed diaphragmatic hernia. No mediastinal regan opathy. IMPRESSION: 1. Extensive bilateral pulmonary emboli. 2. Small effusions with chronic lung changes. Findings relayed to patient's nurse at [facility] at time of dictation. POS: OFF
[2018-11-26] MEDS: Piperacillin/Tazobactam 3.375 GM in Sodium Chloride 0.9% 100 ML IVPB SCH ×5 (00:41→23:47)
[2018-11-26] MEDS: Levothyroxine Sodium 75 MCG TAB PO SCH (05:42)
[2018-11-26 06:13] LABS: ALT (SGPT) 46 U/L (8-55); AST (SGOT) 37 U/L (5-34); Albumin 1.9 g/dL (3.4-4.8); Alkaline Phosphatase 111 U/L (40-150); Anion Gap 11 mmol/L (10-20); BUN (Urea Nitrogen) 26 mg/dL (8.4-25.7); Bilirubin, Total 0.4 mg/dL (0.2-1.2); CK (CPK) 164 U/L (30-200); Calc. Creatinine Clearance 80 mL/min (70-130); Calcium 7.6 mg/dL (7.8-10.44); Carbon Dioxide 26 mmol/L (23-31); Chloride 108 mmol/L (98-107); Estimated GFR-MDRD Greater than 90; Globulin 2.8 g/dL (2.4-3.5); Glucose 121 mg/dL (83-110); Potassium 3.7 mmol/L (3.5-5.1); Protein, Total 4.7 g/dL (5.8-8.1); Sodium 141 mmol/L (136-145)
[2018-11-26] MEDS: Divalproex Sodium 125 mg Sprinkle Capsule PO SCH ×2 (08:29→20:29)
[2018-11-26] MEDS: Tamsulosin HCl 0.4 MG CAP PO SCH (08:30)
[2018-11-26] MEDS: busPIRone HCl 5 MG TAB PO SCH ×3 (08:30→20:30)
[2018-11-26] MEDS: Ziprasidone 20 MG CAP PO SCH ×2 (08:30→15:42)
[2018-11-26] MEDS: Vancomycin HCl 1 GM in Sodium Chloride 0.9% 250 ML 250 ML IVPB SCH ×2 (08:30→20:30)
[2018-11-26] MEDS: Acetaminophen 325 MG TAB PO PRN ×2 (08:30→20:30)
[2018-11-26] MEDS: Famotidine 20 MG TAB PO SCH ×2 (08:30→20:29)
[2018-11-26] MEDS ORDERED: Apixaban 5 MG TAB PO SCH (09:00)
[2018-11-26] MEDS: Dextrose 5 %-0.45 % NaCl 1,000 ML IV SCH (13:22)
[2018-11-26] MEDS: Enoxaparin Sodium 80 MG/0.8 ML SYRINGE SC SCH (20:34)
[2018-11-27] MEDS: Dextrose 5 %-0.45 % NaCl 1,000 ML IV SCH (04:04)
[2018-11-27] MEDS: Piperacillin/Tazobactam 3.375 GM in Sodium Chloride 0.9% 100 ML IVPB SCH (05:24)
[2018-11-27] MEDS: Levothyroxine Sodium 75 MCG TAB PO SCH (05:25)
[2018-11-27 05:30] LABS: #Basophils 0.1 thou/uL (0.0-0.2); #Eosinphils 0.4 thou/uL (0.0-0.7); #Lymphocytes 1.6 thou/uL (1.20-3.40); #Monocytes 0.6 thou/uL (0.11-0.59); #Neutrophils 11.3 thou/uL (1.40-6.50); %Basophils 0.8 % (0.0-1.0); %Eosinophils 2.7 % (0.0-10.0); %Lymphocytes 11.1 % (21.0-51.0); %Monocytes 4.5 % (0.0-10.0); %Neutrophils 80.9 % (42.0-75.0); Hemoglobin 9.6 g/dL (14.0-18.0); Mean Corpuscular HGB CONC 31.6 g/dL (32.0-36.0); Mean Corpuscular Hemoglobin 28.5 pg (27.0-31.0); Mean Corpuscular Volume 90.4 fL (78.0-98.0); Mean Platelet Volume 6.7 fL (7.4-10.4); Platelet Count 292 thou/uL (130-400); RBC Distribution Width 14.5 % (11.5-14.5); Red Blood Cell (RBC) Count 3.38 mill/uL (4.70-6.10)
[2018-11-27 05:43] LABS: Anion Gap 11 mmol/L (10-20); BUN (Urea Nitrogen) 24 mg/dL (8.4-25.7); Calc. Creatinine Clearance 80 mL/min (70-130); Calcium 7.5 mg/dL (7.8-10.44); Carbon Dioxide 25 mmol/L (23-31); Chloride 109 mmol/L (98-107); Estimated GFR-MDRD Greater than 90; Glucose 108 mg/dL (83-110); Potassium 3.6 mmol/L (3.5-5.1); Sodium 141 mmol/L (136-145)
[2018-11-27 08:27] LABS: Vancomycin, Trough 13.7 ug/mL
[2018-11-27] MEDS: Famotidine 20 MG TAB PO SCH ×2 (09:02→21:03)
[2018-11-27] MEDS: Ziprasidone 20 MG CAP PO SCH ×2 (09:02→17:09)
[2018-11-27] MEDS: Enoxaparin Sodium 80 MG/0.8 ML SYRINGE SC SCH ×2 (09:02→21:04)
[2018-11-27] MEDS: Divalproex Sodium 125 mg Sprinkle Capsule PO SCH ×2 (09:02→21:03)
[2018-11-27] MEDS: busPIRone HCl 5 MG TAB PO SCH ×3 (09:02→21:03)
[2018-11-27] MEDS: Tamsulosin HCl 0.4 MG CAP PO SCH (09:02)
--- NOTE | 2018-11-27 10:38 | PRG ---
DATE OF SERVICE: 11/25/2018 SUBJECTIVE: The patient is awake and alert, at baseline mental status, eating somewhat better, in no distress, had no further fever or chills, but still has leukocytosis which remained elevated at 14,000 despite IV antibiotics. Urinalysis showed no evidence of infection and cultures of the urine and the blood are showing no growth. OBJECTIVE: ABDOMEN: Soft and nontender. LUNGS: Clear to auscultation and percussion. CARDIAC: Regular rhythm. ASSESSMENT: 1. Persistent fever and leukocytosis in a patient with no evidence of infection, except for gas pockets and evidence of pyomyositis on his abdominal CT scan. W e will repeat abdominal CT scan and pelvic CT scan today to see if any improvement or worsening. 2. Underlying dementia, appears to be stable, and at baseline mental status. 3. Seizure disorder with no recurrence. PLAN: Abdominopelvic CT scan today. Continue IV fluids. Continue IV Rocephin. Job ID: [id number]
--- NOTE | 2018-11-27 10:47 | PRG ---
DATE OF SERVICE: 11/26/2018 SUBJECTIVE: The patient has become hypoxic, but has been in no significant respiratory distress with normal vital signs, but was found yesterday to have possible pulmonary embolus on abdominal and pelvic CT scan with improvement of the gas pockets in his musculature, and repeat CT angio of the chest shows significant bilateral pulmonary embolus with saddle emboli. The patient subsequently became more hypoxic with O2 saturation down to 90% requiring nasal cannula 4 L and even nonrebreather at times to maintain saturations of 96%. OBJECTIVE: VITAL SIGNS: Remain stable with blood pressure 116/56, respirations 22, pulse 83, afebrile. LUNGS: Clear. CARDIAC: Showed regular rhythm. ASSESSMENT: 1. Bilateral pulmonary embolus with some concern for saddle embolus, appears to be the cause for recurrent fever and leukocytosis. 2. Underlying dementia, stable. PLAN: 1. Start on apixaban, and then after consideration, we will start on Lovenox when it is determined that there is concern for saddle embolus, full dose 70 mg subcutaneously q.12. 2. Oxygen support as needed. 3. Continue to monitor for signs of aspiration, although no evidence of pneumonia on exam. 4. Continue antibiotics 1 more day, but then possibly discontinue. 5. Prognosis is guarded. 6. The patient is not to be resuscitated. He is not an ICU candidate because of his underlying dementia and poor comorbidities, and therefore, will remain at [facility]. Job ID: [id number]
[2018-11-27] MEDS: Acetaminophen 325 MG TAB PO PRN (21:04)
[2018-11-28] MEDS: Dextrose 5 %-0.45 % NaCl 1,000 ML IV SCH (00:54)
[2018-11-28 05:36] LABS: #Basophils 0.1 thou/uL (0.0-0.2); #Eosinphils 0.4 thou/uL (0.0-0.7); #Lymphocytes 1.8 thou/uL (1.20-3.40); #Monocytes 0.8 thou/uL (0.11-0.59); #Neutrophils 8.9 thou/uL (1.40-6.50); %Basophils 0.5 % (0.0-1.0); %Eosinophils 3.2 % (0.0-10.0); %Lymphocytes 14.8 % (21.0-51.0); %Neutrophils 74.6 % (42.0-75.0); Hemoglobin 9.9 g/dL (14.0-18.0); Mean Corpuscular HGB CONC 31.3 g/dL (32.0-36.0); Mean Corpuscular Hemoglobin 28.6 pg (27.0-31.0); Mean Corpuscular Volume 91.4 fL (78.0-98.0); Platelet Count 267 thou/uL (130-400); RBC Distribution Width 14.5 % (11.5-14.5); Red Blood Cell (RBC) Count 3.45 mill/uL (4.70-6.10); White Blood Cell (WBC) Count 11.9 thou/uL (4.8-10.8)
[2018-11-28] MEDS: Levothyroxine Sodium 75 MCG TAB PO SCH (05:39)
[2018-11-28] MEDS: Divalproex Sodium 125 mg Sprinkle Capsule PO SCH ×2 (08:34→21:02)
[2018-11-28] MEDS: Ziprasidone 20 MG CAP PO SCH ×2 (08:34→17:17)
[2018-11-28] MEDS: Tamsulosin HCl 0.4 MG CAP PO SCH (08:35)
[2018-11-28] MEDS: busPIRone HCl 5 MG TAB PO SCH ×3 (08:35→21:02)
[2018-11-28] MEDS: Famotidine 20 MG TAB PO SCH ×2 (08:35→21:03)
[2018-11-28] MEDS: Acetaminophen 325 MG TAB PO PRN (08:35)
[2018-11-28] MEDS: Enoxaparin Sodium 80 MG/0.8 ML SYRINGE SC SCH ×2 (08:36→21:03)
[2018-11-29] MEDS: Dextrose 5 %-0.45 % NaCl 1,000 ML IV SCH ×2 (00:12→17:29)
[2018-11-29] MEDS: Levothyroxine Sodium 75 MCG TAB PO SCH (06:01)
[2018-11-29] MEDS: Enoxaparin Sodium 80 MG/0.8 ML SYRINGE SC SCH ×2 (09:12→20:43)
[2018-11-29] MEDS: Acetaminophen 325 MG TAB PO PRN (09:13)
[2018-11-29] MEDS: Divalproex Sodium 125 mg Sprinkle Capsule PO SCH ×2 (09:13→20:44)
[2018-11-29] MEDS: Tamsulosin HCl 0.4 MG CAP PO SCH (09:13)
[2018-11-29] MEDS: Ziprasidone 20 MG CAP PO SCH ×2 (09:13→17:28)
[2018-11-29] MEDS: busPIRone HCl 5 MG TAB PO SCH ×3 (09:14→20:44)
[2018-11-29] MEDS: Famotidine 20 MG TAB PO SCH ×2 (09:14→20:44)
[2018-11-30 05:41] LABS: Hemoglobin 10.5 g/dL (14.0-18.0); Platelet Count 220 thou/uL (130-400)
[2018-11-30 05:57] LABS: ALT (SGPT) 42 U/L (8-55); AST (SGOT) 59 U/L (5-34); Albumin 1.9 g/dL (3.4-4.8); Alkaline Phosphatase 122 U/L (40-150); Anion Gap 12 mmol/L (10-20); BUN (Urea Nitrogen) 17 mg/dL (8.4-25.7); Bilirubin, Total 0.3 mg/dL (0.2-1.2); Calc. Creatinine Clearance 84 mL/min (70-130); Carbon Dioxide 24 mmol/L (23-31); Chloride 109 mmol/L (98-107); Estimated GFR-MDRD Greater than 90; Glucose 91 mg/dL (83-110); Potassium 4.4 mmol/L (3.5-5.1); Protein, Total 4.9 g/dL (5.8-8.1); Sodium 141 mmol/L (136-145)
[2018-11-30 06:13] LABS: Calc. Creatinine Clearance 86 mL/min (70-130); Estimated GFR-MDRD Greater than 90
[2018-11-30] MEDS: Levothyroxine Sodium 75 MCG TAB PO SCH (06:22)
--- NOTE | 2018-11-30 08:09 | PRG ---
DATE OF SERVICE: 11/28/2018 SUBJECTIVE: The patient feels much better, awake and alert, back at his baseline confused mental status, in no distress, eating well. OBJECTIVE: VITAL SIGNS: Shows temperature is 99.3, pulse 91, respirations 20, O2 saturations 92% on 3 L, and blood pressure is 159/68. LUNGS: Clear. CARDIAC: Shows regular rhythm. ABDOMEN: Soft and nontender. LABORATORY DATA: White count is down to 11,900, hematocrit 31, hemoglobin 9.9, and platelet count is 267,000. Sodium was 141, potassium 3.5, chloride 109, bicarb 25, BUN 24, creatinine 0.72, and calcium 7.5. ASSESSMENT: 1. Resolving bilateral pulmonary embolus with partial saddle embolus. 2. Stable dementia. 3. Resolved rhabdomyolysis. PLAN: Continue Lovenox 70 mg subcu q.12. Continue O2 to maintain saturations above 93%. Continue to monitor for signs of aspiration. Discontinue antibiotics, still this fever is related to pulmonary embolus. Job ID: [id number]
--- NOTE | 2018-11-30 08:15 | PRG ---
DATE OF SERVICE: 11/29/2018 SUBJECTIVE: The patient is awake and alert, in no distress. He is at baseline mental status, but only responds to questions minimally. OBJECTIVE: GENERAL: Shows there is some scrotal edema. LUNGS: Appear to be clear. VITAL SIGNS: Show blood pressure of 124/57, O2 saturations 98% on 3 L, temperature is 97, pulse 82, and respirations 20. ASSESSMENT: 1. Resolving bilateral pulmonary embolus. 2. Resolved rhabdomyolysis. 3. Stable dementia. 4. No evidence of sepsis. PLAN: 1. Continue subcu Lovenox. Appears to be improving. No evidence of thrombocytopenia. 2. CBC and comp met profile in the a.m. 3. Continue off the IV fluids, monitor edema, and may need chest x-ray. Job ID: [id number]
[2018-11-30] MEDS: Enoxaparin Sodium 80 MG/0.8 ML SYRINGE SC SCH ×2 (08:34→21:54)
[2018-11-30] MEDS: Tamsulosin HCl 0.4 MG CAP PO SCH (08:35)
[2018-11-30] MEDS: Ziprasidone 20 MG CAP PO SCH ×2 (08:35→17:36)
[2018-11-30] MEDS: Divalproex Sodium 125 mg Sprinkle Capsule PO SCH ×2 (08:35→21:54)
[2018-11-30] MEDS: Famotidine 20 MG TAB PO SCH ×2 (08:35→21:54)
[2018-11-30] MEDS: busPIRone HCl 5 MG TAB PO SCH ×3 (08:35→21:54)
[2018-11-30] MEDS: Acetaminophen 325 MG TAB PO PRN ×2 (08:35→21:54)
--- NOTE | 2018-11-30 08:41 | RAD ---
XR Chest 1 View Portable HISTORY: CHF, PE COMPARISON: 11/24/2018 FINDINGS: There are changes of median sternotomy. The heart size normal. Small bilateral pleural effusions are seen. No lobar consolidation, pneumothoraces or ruperto pulmonary edema are identified.
--- NOTE | 2018-11-30 21:08 | PRG ---
DATE OF SERVICE: 11/30/2018 SUBJECTIVE: The patient feels well with no complaints, eating well, at his baseline mental status. No respiratory distress. OBJECTIVE: VITAL SIGNS: Shows his temperature 99, pulse 80, respirations 20, O2 sats 98% on 3 L, and blood pressure 107/55. LABORATORY DATA: Hematocrit is 32, hemoglobin 10.5, and platelet count is 220,000. Sodium is 141, potassium 4.4, chloride 109, bicarb 24, BUN 17, and creatinine 0.69. AST 59, ALT 42, and alkaline phosphatase 122. ASSESSMENT: 1. Resolving bilateral pulmonary embolus with saddle component. 2. Stable dementia. 3. Resolved rhabdomyolysis. PLAN: 1. Continue Lovenox. 2. Continue to monitor for aspiration. 3. Continue to monitor platelets. 4. Continue to monitor oxygen requirements and hopefully change to apixaban in the near future. Job ID: [id number]
[2018-12-01] MEDS: Levothyroxine Sodium 75 MCG TAB PO SCH (05:21)
[2018-12-01] MEDS: Enoxaparin Sodium 80 MG/0.8 ML SYRINGE SC SCH ×2 (08:08→20:58)
[2018-12-01] MEDS: busPIRone HCl 5 MG TAB PO SCH ×3 (08:09→20:58)
[2018-12-01] MEDS: Divalproex Sodium 125 mg Sprinkle Capsule PO SCH ×2 (08:09→20:58)
[2018-12-01] MEDS: Tamsulosin HCl 0.4 MG CAP PO SCH (08:09)
[2018-12-01] MEDS: Famotidine 20 MG TAB PO SCH ×2 (08:09→20:58)
[2018-12-01] MEDS: Ziprasidone 20 MG CAP PO SCH ×2 (08:09→17:28)
[2018-12-02 05:31] LABS: Calc. Creatinine Clearance 81 mL/min (70-130); Estimated GFR-MDRD Greater than 90
[2018-12-02 05:37] LABS: Hemoglobin 9.3 g/dL (14.0-18.0); Platelet Count 387 thou/uL (130-400)
[2018-12-02] MEDS: Levothyroxine Sodium 75 MCG TAB PO SCH (05:54)
--- NOTE | 2018-12-02 06:41 | PRG ---
DATE OF SERVICE: 12/01/2018 SUBJECTIVE: The patient is lying in bed, awake and alert, but minimally responsive. Appears to be close to his baseline. Has not been out of the bed and is having no respiratory distress or weakness. OBJECTIVE: VITAL SIGNS: Show temperature is 98.9, pulse 79, respirations 20, O2 saturations 97% on 3 L, blood pressure 123/55. LUNGS: Clear. CARDIAC: Shows regular rhythm. ABDOMEN: Soft, nontender. LABORATORY DATA: Hemoglobin 10.5, hematocrit 32, platelet count 222,000. ASSESSMENT: 1. Resolving bilateral pulmonary embolus with saddle embolus with stable vital signs and improving oxygenation on supplemental oxygen cannula. 2. Stable dementia. 3. Resolved rhabdomyolysis. 4. Severe deconditioning. PLAN: 1. Continue Lovenox. 2. Discuss care with . 3. Start PT, OT. 4. Continue to monitor for thrombocytopenia. 5. Continue to monitor oxygen requirements and attempt to change the apixaban in the future if oxygen requirements improve. Job ID: [id number]
[2018-12-02] MEDS: Famotidine 20 MG TAB PO SCH ×2 (09:00→21:34)
[2018-12-02] MEDS: Ziprasidone 20 MG CAP PO SCH ×2 (09:00→16:15)
[2018-12-02] MEDS: busPIRone HCl 5 MG TAB PO SCH ×3 (09:00→21:34)
[2018-12-02] MEDS: Divalproex Sodium 125 mg Sprinkle Capsule PO SCH ×2 (09:00→21:33)
[2018-12-02] MEDS: Tamsulosin HCl 0.4 MG CAP PO SCH (09:00)
[2018-12-02] MEDS: Enoxaparin Sodium 80 MG/0.8 ML SYRINGE SC SCH ×2 (09:00→21:34)
[2018-12-03] MEDS: Levothyroxine Sodium 75 MCG TAB PO SCH (05:50)
[2018-12-03] MEDS: Divalproex Sodium 125 mg Sprinkle Capsule PO SCH ×2 (08:09→21:07)
[2018-12-03] MEDS: Tamsulosin HCl 0.4 MG CAP PO SCH (08:09)
[2018-12-03] MEDS: Enoxaparin Sodium 80 MG/0.8 ML SYRINGE SC SCH ×2 (08:09→21:06)
[2018-12-03] MEDS: busPIRone HCl 5 MG TAB PO SCH ×3 (08:09→21:07)
[2018-12-03] MEDS: Famotidine 20 MG TAB PO SCH ×2 (08:09→21:07)
[2018-12-03] MEDS: Ziprasidone 20 MG CAP PO SCH ×2 (08:09→17:39)
[2018-12-04 05:15] LABS: Hemoglobin 10.6 g/dL (14.0-18.0); Platelet Count 432 thou/uL (130-400)
[2018-12-04 05:36] LABS: Calc. Creatinine Clearance 81 mL/min (70-130); Estimated GFR-MDRD Greater than 90
[2018-12-04] MEDS: Levothyroxine Sodium 75 MCG TAB PO SCH (05:52)
[2018-12-04] MEDS: Divalproex Sodium 125 mg Sprinkle Capsule PO SCH ×2 (08:35→21:05)
[2018-12-04] MEDS: Ziprasidone 20 MG CAP PO SCH ×2 (08:36→16:21)
[2018-12-04] MEDS: busPIRone HCl 5 MG TAB PO SCH ×3 (08:36→21:05)
[2018-12-04] MEDS: Tamsulosin HCl 0.4 MG CAP PO SCH (08:36)
[2018-12-04] MEDS: Famotidine 20 MG TAB PO SCH ×2 (08:36→21:05)
[2018-12-04] MEDS: Apixaban 5 MG TAB PO SCH ×2 (08:36→21:05)
[2018-12-04] MEDS: Hydrocortisone 1% Cream 30 GM TUBE TOP PRN ×2 (16:26→21:04)
[2018-12-04] MEDS: Acetaminophen 325 MG TAB PO PRN (21:05)
[2018-12-05] MEDS: Levothyroxine Sodium 75 MCG TAB PO SCH (05:28)
[2018-12-05] MEDS: Divalproex Sodium 125 mg Sprinkle Capsule PO SCH ×2 (09:20→20:59)
[2018-12-05] MEDS: Apixaban 5 MG TAB PO SCH ×2 (09:20→20:59)
[2018-12-05] MEDS: Ziprasidone 20 MG CAP PO SCH ×2 (09:20→16:06)
[2018-12-05] MEDS: busPIRone HCl 5 MG TAB PO SCH ×3 (09:20→20:59)
[2018-12-05] MEDS: Hydrocortisone 1% Cream 30 GM TUBE TOP PRN ×2 (09:21→20:58)
[2018-12-05] MEDS: Famotidine 20 MG TAB PO SCH ×2 (09:21→20:59)
[2018-12-05] MEDS: Tamsulosin HCl 0.4 MG CAP PO SCH (09:36)
[2018-12-05] MEDS: Acetaminophen 325 MG TAB PO PRN (20:59)
[2018-12-06 05:16] LABS: Hemoglobin 10.9 g/dL (14.0-18.0); Platelet Count 429 thou/uL (130-400)
[2018-12-06 05:28] LABS: Calc. Creatinine Clearance 76 mL/min (70-130); Estimated GFR-MDRD Greater than 90
[2018-12-06] MEDS: Levothyroxine Sodium 75 MCG TAB PO SCH (07:07)
[2018-12-06] MEDS: busPIRone HCl 5 MG TAB PO SCH ×3 (08:22→21:07)
[2018-12-06] MEDS: Divalproex Sodium 125 mg Sprinkle Capsule PO SCH ×2 (08:22→21:07)
[2018-12-06] MEDS: Famotidine 20 MG TAB PO SCH ×2 (08:22→21:07)
[2018-12-06] MEDS: Ziprasidone 20 MG CAP PO SCH ×2 (08:22→16:13)
[2018-12-06] MEDS: Apixaban 5 MG TAB PO SCH ×2 (08:23→21:07)
[2018-12-06] MEDS: Hydrocortisone 1% Cream 30 GM TUBE TOP PRN ×2 (08:23→21:07)
[2018-12-06] MEDS: Tamsulosin HCl 0.4 MG CAP PO SCH (08:23)
--- NOTE | 2018-12-06 08:36 | PRG ---
DATE OF SERVICE: 12/05/2018 SUBJECTIVE: The patient feels well, lying in the bed, but is at his baseline mental status, which is minimally responsive. Eating, but not cooperating with therapy or the nurses. states that he was walking before, but he does not appear to be returning to the status at this time. He is in no respiratory distress. OBJECTIVE: VITAL SIGNS: Show him to have temperature 99.2, pulse 85, respirations 19, O2 saturations 98% on 2 L, and blood pressure 127/59. LUNGS: Clear. CARDIAC: Showed regular rhythm. ABDOMEN: Soft and nontender. LABORATORY DATA: Shows hemoglobin 10, hematocrit 34, and platelet count 432. ASSESSMENT: 1. Resolving bilateral pulmonary embolus with saddle component. No evidence of pulmonary hypertension. 2. Significant dementia, not improving. 3. Seborrhea of the face, improving on steroid cream. 4. Resolved rhabdomyolysis. PLAN: Discontinue Lovenox. Start apixaban 5 mg twice daily. Continue PT/OT. Contempt to wean off oxygen and transfer back to the senior care in the next several days as not cooperating with therapy. Job ID: [id number]
--- NOTE | 2018-12-06 21:22 | PRG ---
DATE OF SERVICE: 12/06/2018 SUBJECTIVE: The patient is awake and alert, sitting up in bed. Had eaten well. Having no complaints, but is still total assist with care and is not moving out of the bed. OBJECTIVE: VITAL SIGNS: Show temperature is 97.7, O2 saturation is 93% on 2 L, blood pressure 138/64. LUNGS: Clear. CARDIAC: Showed regular rhythm. ABDOMEN: Soft and nontender. ASSESSMENT: 1. Resolving bilateral pulmonary embolus with saddle emboli. 2. Persistent dementia, at baseline. 3. Severe deconditioning, not recovering from pulmonary embolus and not able to do ADLs. 4. Resolved rhabdomyolysis. PLAN: Continue apixaban 5 twice daily. Continue PT/OT. Continue to wean off oxygen and transfer back to [facility] in the next several days on supplemental oxygen if required. Job ID: [id number]
--- NOTE | 2018-12-06 21:44 | PRG ---
DATE OF SERVICE: 12/04/2018 SUBJECTIVE: The patient is doing well with no change in conditioning. He is not cooperating with therapy. He is still on low-flow oxygen. OBJECTIVE: VITAL SIGNS: Show blood pressure is 132/63, temperature 98, pulse 72, respirations 20, O2 sats 100% on 3 L. LUNGS: Clear. CARDIAC: Shows regular rhythm. ABDOMEN: Soft and nontender. SKIN/EXTREMITIES: Show no edema. ASSESSMENT: 1. Resolving pulmonary embolus. 2. Stable dementia, behavioral disturbance. 3. Severe deconditioning, not improving. PLAN: Change apixaban 5 twice daily. Monitor vital signs and oxygen requirements. Prepare to discharge back to shelter if therapy cannot work with the patient. Job ID: [id number]
--- NOTE | 2018-12-06 21:56 | PRG ---
DATE OF SERVICE: SUBJECTIVE: The patient lying in the bed, eating well, but was not cooperating with therapy or nurses, having some seborrhea on his face. OBJECTIVE: VITAL SIGNS: Blood pressure is 116/54, temperature 98.2, pulse 79, respirations 20, and O2 sats 98% on 3 L. LUNGS: Clear. CARDIAC: Showed regular rhythm. ABDOMEN: Soft and nontender. ASSESSMENT: 1. Resolving bilateral pulmonary embolus. 2. Stable dementia with behavioral disturbance. 3. Stable hypothyroidism. 4. Persistent severe deconditioning, not improving. 5. Resolved rhabdomyolysis. PLAN: 1. Continue Lovenox one more day and start apixaban tomorrow. 2. Continue to discuss with PT and possibly transfer back to [facility] in the next several days. 3. Hydrocortisone 1% to the face for seborrhea. 4. Continue to monitor for aspiration risk. Job ID: [id number]
--- NOTE | 2018-12-06 22:01 | PRG ---
DATE OF SERVICE: 12/02/2018 SUBJECTIVE: The patient is lying in bed, in no distress. Eating well. Appears to be at baseline. I have discussed with therapy and states that he however is not cooperating with therapy. OBJECTIVE: VITAL SIGNS: Show temperature 97.9, pulse 69, respirations 20, O2 saturations 97% on room air, blood pressure is 108/54. LUNGS: Clear. CARDIAC: Showed regular rhythm. ABDOMEN: Soft and nontender. SKIN AND EXTREMITIES: Display no edema, clubbing, or cyanosis. ASSESSMENT: 1. Resolving bilateral pulmonary embolus. 2. Stable hypothyroidism. 3. Stable benign prostatic hypertrophy. 4. Stable dementia with behavioral disturbance is controlled. PLAN: 1. Continue Lovenox one more day and then possibly switch to apixaban as the patient apparently is not going to be able to stay in the hospital for therapy and will be discharged back to [facility]. 2. Contempt to wean off oxygen. 3. Continue to monitor vital signs closely. Job ID: [id number]
[2018-12-07] MEDS: Levothyroxine Sodium 75 MCG TAB PO SCH (05:43)
[2018-12-07] MEDS: Tamsulosin HCl 0.4 MG CAP PO SCH (08:47)
[2018-12-07] MEDS: Ziprasidone 20 MG CAP PO SCH (08:47)
[2018-12-07] MEDS: Apixaban 5 MG TAB PO SCH ×2 (08:47→21:05)
[2018-12-07] MEDS: busPIRone HCl 5 MG TAB PO SCH ×3 (08:48→21:06)
[2018-12-07] MEDS: Famotidine 20 MG TAB PO SCH ×2 (08:48→21:05)
[2018-12-07] MEDS: Divalproex Sodium 125 mg Sprinkle Capsule PO SCH ×2 (08:48→21:05)
[2018-12-07] MEDS: Hydrocortisone 1% Cream 30 GM TUBE TOP PRN (21:04)
[2018-12-07] MEDS: Acetaminophen 325 MG TAB PO PRN (21:05)
--- NOTE | 2018-12-07 21:26 | PRG ---
DATE OF SERVICE: 12/07/2018 SUBJECTIVE: The patient is a 78-year-old white male with a history of dementia, living in a half-way, who developed bilateral pulmonary embolus with saddle component as well as rhabdomyolysis, recovering very well, initially on Lovenox and now on apixaban with no respiratory distress. He has been eating well. He is at his same baseline mental status, but is not ambulating and cooperating with therapy. OBJECTIVE: VITAL SIGNS: Temperature 97.7, pulse 80, respirations 20, O2 sats 97% on room air, blood pressure 129/60. LUNGS: Clear. CARDIAC: Regular rhythm. ABDOMEN: Soft and nontender. ASSESSMENT: 1. Resolving bilateral pulmonary embolus. 2. Stable dementia. 3. Severe deconditioning. 4. Adequate oral intake with no aspiration. PLAN: Continue apixaban 5 twice daily. Wean off oxygen today. Probably discharge back to half-way tomorrow or the next day. Job ID: [id number]
[2018-12-08] MEDS: Levothyroxine Sodium 75 MCG TAB PO SCH (05:37)
[2018-12-08 06:02] LABS: #Basophils 0.1 thou/uL (0.0-0.2); #Eosinphils 0.3 thou/uL (0.0-0.7); #Lymphocytes 1.9 thou/uL (1.20-3.40); #Monocytes 0.7 thou/uL (0.11-0.59); #Neutrophils 6.4 thou/uL (1.40-6.50); %Eosinophils 3.5 % (0.0-10.0); %Lymphocytes 19.7 % (21.0-51.0); %Monocytes 7.3 % (0.0-10.0); %Neutrophils 68.5 % (42.0-75.0); Hemoglobin 10.5 g/dL (14.0-18.0); Mean Corpuscular HGB CONC 30.8 g/dL (32.0-36.0); Mean Corpuscular Hemoglobin 28.4 pg (27.0-31.0); Mean Corpuscular Volume 92.4 fL (78.0-98.0); Mean Platelet Volume 5.8 fL (7.4-10.4); Platelet Count 351 thou/uL (130-400); RBC Distribution Width 14.5 % (11.5-14.5); Red Blood Cell (RBC) Count 3.71 mill/uL (4.70-6.10); White Blood Cell (WBC) Count 9.4 thou/uL (4.8-10.8)
[2018-12-08 06:16] LABS: ALT (SGPT) 18 U/L (8-55); AST (SGOT) 26 U/L (5-34); Albumin 2.3 g/dL (3.4-4.8); Alkaline Phosphatase 89 U/L (40-150); Anion Gap 11 mmol/L (10-20); BUN (Urea Nitrogen) 29 mg/dL (8.4-25.7); Bilirubin, Total 0.3 mg/dL (0.2-1.2); Calc. Creatinine Clearance 76 mL/min (70-130); Calcium 8.5 mg/dL (7.8-10.44); Carbon Dioxide 31 mmol/L (23-31); Chloride 102 mmol/L (98-107); Estimated GFR-MDRD Greater than 90; Globulin 3.3 g/dL (2.4-3.5); Glucose 100 mg/dL (83-110); Potassium 4.1 mmol/L (3.5-5.1); Protein, Total 5.6 g/dL (5.8-8.1); Sodium 140 mmol/L (136-145)
[2018-12-08] MEDS: busPIRone HCl 5 MG TAB PO SCH ×3 (08:54→20:51)
[2018-12-08] MEDS: Apixaban 5 MG TAB PO SCH ×2 (08:54→20:51)
[2018-12-08] MEDS: Divalproex Sodium 125 mg Sprinkle Capsule PO SCH ×2 (08:54→20:51)
[2018-12-08] MEDS: Tamsulosin HCl 0.4 MG CAP PO SCH (08:55)
[2018-12-08] MEDS: Ziprasidone 20 MG CAP PO SCH (08:55)
[2018-12-08] MEDS: Famotidine 20 MG TAB PO SCH ×2 (08:55→20:51)
[2018-12-08] MEDS: Hydrocortisone 1% Cream 30 GM TUBE TOP PRN (20:51)
--- NOTE | 2018-12-08 21:33 | PRG ---
DATE OF SERVICE: 12/08/2018 SUBJECTIVE: The patient is awake and alert, at baseline mental status, eating, but not able to maintain ADLs and not cooperating with therapy, but in no respiratory distress. OBJECTIVE: VITAL SIGNS: Temperature is 98.4, pulse 87, respirations 20, O2 saturation 94% on room air, blood pressure is 164/63. LABORATORY DATA: White count of 9400, hematocrit 34, hemoglobin 10. Sodium 140, potassium 4.1, chloride 102, bicarbonate 31, BUN 29, creatinine 0.76, glucose 100, calcium 8.5, total bilirubin 0.3, AST 26, ALT 18, protein 5.6, albumin of 2.3. ASSESSMENT: 1. Resolving bilateral pulmonary embolus, on apixaban 5 mg twice daily with no evidence of significant anemia. 2. Stable dementia, at baseline. 3. Rhabdomyolysis, resolved. PLAN: Discharge to [facility] tomorrow on apixaban 5 mg twice daily. Off oxygen. Job ID: [id number]
[2018-12-09] MEDS: Levothyroxine Sodium 75 MCG TAB PO SCH (06:14)
[2018-12-09 07:32] VITALS: BP 132/53; TEMP 97.5
[2018-12-09] MEDS: Divalproex Sodium 125 mg Sprinkle Capsule PO SCH (08:32)
[2018-12-09] MEDS: Hydrocortisone 1% Cream 30 GM TUBE TOP PRN (08:33)
[2018-12-09] MEDS: Tamsulosin HCl 0.4 MG CAP PO SCH (08:33)
[2018-12-09] MEDS: Famotidine 20 MG TAB PO SCH (08:33)
[2018-12-09] MEDS: busPIRone HCl 5 MG TAB PO SCH (08:33)
[2018-12-09] MEDS: Ziprasidone 20 MG CAP PO SCH (08:33)
[2018-12-09] MEDS: Apixaban 5 MG TAB PO SCH (08:33)
== END 2018-12-09 12:16 | DRG 557 ==
LOC: NAV ACUTE 07:08
PROVIDERS: ADMIT Internal Medicine; ATTEND Internal Medicine
DX: M62.82 Rhabdomyolysis (principal); I26.92 Saddle embolus of pulmonary artery without acute cor pulmonale; M60.009 Infective myositis, unspecified site; F03.91 Unspecified dementia, unspecified severity, with behavioral disturbance; G40.909 Epilepsy, unspecified, not intractable, without status epilepticus; R53.81 Other malaise; L21.9 Seborrheic dermatitis, unspecified; E03.9 Hypothyroidism, unspecified; N40.0 Benign prostatic hyperplasia without lower urinary tract symptoms
CPT/HCPCS: 36415; 71045; 71275; 74177; 80048; 80053; 80202; 81001; 82550; 82565; 83605; 85014; 85018; 85025; 85049; 87040; 87086; 90471; 90670; G0009; J0696; J1650; J2543; J3370; J3490; J7042; J7050; Q9967